=== PATIENT | female | born 1945 | race American Indian/Alaskan Native ===

== ENCOUNTER 2017-10-01 06:47 | Day surgery (SDC) | payer MEDICARE ==
[2017-10-01] MEDS ORDERED: ECOTRIN PO NR (07:13)
[2017-10-01] MEDS ORDERED: NACL 0.9% 500 ML 500 ML IV SCH (08:00)
[2017-10-01] MEDS ORDERED: HEPARIN/NS 5000 UNIT/500ML(CATH LAB) 1,000 ML IR ONE (08:11)
[2017-10-01] MEDS ORDERED: CALAN ONE (08:12)
[2017-10-01] MEDS ORDERED: NITROGLYCERIN SYRINGE 3 ML ONE (08:12)
[2017-10-01] MEDS ORDERED: HEPARIN 10,000 UNITS/10 ML ONE (08:12)
[2017-10-01] MEDS ORDERED: XYLOCAINE 2% INFILTRATI ONE (08:12)
[2017-10-01] MEDS ORDERED: VERSED ONE (08:13)
[2017-10-01] MEDS ORDERED: SUBLIMAZE ONE (08:13)
--- NOTE | 2017-10-01 10:26 | Cardiac Catherization Report ---
CARDIAC CATHETERIZATION REFERRING PHYSICIAN: Nissa Mendez M.D. INDICATION FOR PROCEDURE: The patient is a pleasant 71-year-old female with a history of hypertension, thyroid nodule, fatigue, abnormal nuclear stress test. She has had recurrent chest pain over the past several years. Nuclear stress test shows anterior ischemia. She is referred for left heart catheterization. Risks, benefits, and potential alternatives were explained at length prior to obtaining informed consent. PROCEDURE IN DETAIL: The patient was brought to the catheterization lab in a postabsorptive state and prepped and draped in sterile fashion. Urbano's test in the right hand was normal. A 2 mL of 2% lidocaine was used to anesthetize the right wrist. A standard 6-[place] hydrophilic sheath was used to cannulate the right radial artery via modified Seldinger technique. All exchanges performed to exchange a J-tip guidewire. JL3.5 catheter used to engage the left main. No dampening or ventricularization. Cineangiography was performed in all projections. JR4 catheter used to cross the aortic valve under fluoroscopic guidance. Left ventriculography performed in [address] [place] projections via hand injections. Next, the catheter was flushed. Manual pullback performed with continuous pressure monitoring. Catheter was used to engage the right coronary. No dampening or ventricularization. Cineangiography was performed in all projections. Next, given no evidence of significant coronary disease, recurrent chest pain, and hypertension, a root aortography was performed in the [place] projection with a pigtail catheter and power injector. Next, catheter was removed from the body over wire, sheath removed. Manual pressure was used to achieve hemostasis. There were no immediate complications. I directly supervised the administration of moderate sedation with Versed and fentanyl from 8:55 a.m. to 9:25 a.m. DATA: Aortic pressure is 140/80, LV pressure is 140, LVEP of 20 mmHg. Left ventriculography revealed normal systolic performance with an estimated ejection fraction of 55% -60%. No evidence of aortic stenosis. CORONARY ANATOMY: This is a right dominant system. Left main without significant disease, bifurcates the left anterior descending and left circumflex. Left circumflex is a moderate sized vessel, courses AV groove, distally bifurcates in the posterior descending and posterolateral branches. LAD is a large vessel, courses anterior intergroove, wraps around the apex. No significant disease in the LAD or diagonal system. Left ventriculography reveals normal systolic performance with estimated ejection fraction of 55%-60%. Right coronary is a moderate sized vessel, courses AV groove, distally bifurcates in the posterior descending and posterolateral branches. No discrete stenosis identified. Root aortography reveals normal contour, no evidence of dissection, penetrating aortic ulcer, or aortic insufficiency. Horizontal aortic root is noted. CONCLUSIONS: 1. No angiographic evidence of significant epicardial coronary disease in this right dominant system. 2. Normal left ventricular systolic performance with an estimated ejection fraction of 55% -60%. 3. No evidence of aortic stenosis. 4. Root aortography without evidence of dissection, penetrating aortic ulcer, or aortic insufficiency. Results of the procedure were explained at length to the patient and family. All questions and concerns were addressed, standard radial care. Continue risk factor modification and blood pressure control. Follow up with Dr. Mendez in the office. JOB# [id number] SBGenoveva/NTS
[2017-10-01 11:08] VITALS: BP 146/76
--- NOTE | 2017-10-03 16:00 | Short Stay Summary ---
Short Stay Documentation Date of service: 10/01/17 - History H&P: obtained from office - Allergies and Medications Current Medications: Allergies No Known Allergies Allergy (Verified 10/01/17 07:13) Home Medications Medication Instructions Recorded Confirmed Last Taken Type Aspirin [Aspirin EC] 81 mg PO DAILY 10/01/17 10/01/17 09/30/17 History Carvedilol [Coreg] 12.5 mg PO DAILY 10/01/17 10/01/17 09/30/17 History Loratadine/Pseudoephedrine 1 tab PO DAILY PRN 10/01/17 10/01/17 2 Weeks Ago History [Claritin-D 24Hr] ~09/17/17 Oxymetazoline 0.05% [Afrin] 2 spray NS DAILY 10/01/17 10/01/17 09/30/17 History amLODIPine [Norvasc] 10 mg PO DAILY 10/01/17 10/01/17 09/30/17 History - Brief post op/procedure progress note Date of procedure: 10/01/17 Pre-op diagnosis: recurrent chest pain, abnormal stress test Post-op diagnosis: same Procedure: LHC - see cath report Anesthesia: local Estimated blood loss: none Condition: stable - Disposition Condition at discharge: Stable Disposition: DC-01 TO HOME OR SELFCARE - Discharge Diagnoses (1) Chest pain Status: Chronic (2) Abnormal stress test Status: Chronic (3) HTN (hypertension) Status: Chronic Short Stay Discharge Plan Activity: advance as tolerated Diet: low salt Wound: open to air, keep clean and dry, per your surgeon's advice Follow up with: JOSE HOFF MD [Other] - 7 Days Forms: CardCath PCI D/C Instructions
== END 2017-10-01 12:05 | disposition home or self-care (01) ==
LOC: CATHLABREC 06:47
PROVIDERS: ATTEND Internal Medicine
DX: R07.89 Other chest pain (principal); I10 Essential (primary) hypertension
CPT/HCPCS: 93005; 93010; 93458; 93567; 99156; 99157; C1894; J1644; J2250; J3010; J7040; Q9967